=== PATIENT | male | born 1970 | race Caucasian/White ===

== ENCOUNTER 2024-05-18 02:55 | Outpatient (CLI) | payer BC, SELFPAY ==
[2024-05-18 11:49] LABS: Abs Immature Grans 0.04 10^3/uL (0.0-0.06); Absolute Basophil Count 0.06 10^3/uL (0.0-0.2); Absolute Eosinophil Count 0.05 10^3/uL (0.0-0.7); Absolute Monocyte Count 0.63 10^3/uL (0.1-0.8); Absolute Neutrophil Count 7.24 10^3/uL (1.2-6.7); Basophils % 0.6 %; Eosinophils % 0.5 %; HCT 45.6 % (40.0-50.0); HGB 15.9 g/dL (13.5-17.5); Immature Grans % 0.4 %; Lymphocytes % 20.8 %; MCH 31.8 pg (27.0-33.0); MCHC 34.9 % (32.0-36.0); MCV 91 fL (80-95); MPV 9.5 fL (8.0-11.0); Monocytes % 6.2 %; Neutrophils % 71.5 %; Platelet Count 276 10^3/uL (130-400); RDW 13.5 % (11.8-14.1); WBC 10.12 10^3/uL (4.4-10.8)
[2024-05-18 12:01] LABS: Hemoglobin A1C 5.6 % (<5.7)
[2024-05-18 13:12] LABS: ALT 24 U/L (16-63); AST 19 U/L (15-37); Albumin 3.9 g/dL (3.4-5.0); Alkaline Phosphatase 101 U/L (46-116); Anion Gap 9.3 mmol/L (3-11); BUN 7 mg/dL (7-18); Bilirubin, Total 0.31 mg/dL (0.2-1.0); CO2 26.7 mmol/L (21.0-32.0); CREATININE 1.1 mg/dL (0.70-1.30); Calcium 9.1 mg/dL (8.5-10.1); Calculated LDL 81 mg/dL (<100); Chloride 103 mmol/L (98-107); Cholesterol 167 mg/dL (<200); Estimated GFR 79.28 (mL/min/1.73m2); Glucose 115 mg/dL (74-106); HDL Cholesterol 75 mg/dL (40-60); Potassium 4.3 mmol/L (3.5-5.1); Sodium 139 mmol/L (136-145); Total Protein 7.6 g/dL (6.4-8.2); Triglyceride 57 mg/dL (<150)
== END 2024-05-18 02:56 | disposition home or self-care (01) ==
LOC: LBO 02:55
PROVIDERS: PCP Nurse Practitioner Family; Visit Provider Nurse Practitioner Family
DX: I10 Essential (primary) hypertension (principal); Z00.00 Encounter for general adult medical examination without abnormal findings
CPT/HCPCS: 36415; 80053; 80061; 83036; 84443; 85025

== ENCOUNTER 2024-10-21 09:17 | Outpatient (REF) | payer BC, SELFPAY ==
--- NOTE | 2024-10-21 09:45 | SKI_PTH ---
PATIENT: Zion Trujillo LOC: [facility] U#:[id number] AGE/SX: 54/M ROOM: RE10/21/[address]: Amanda Calderon : 1970 BED: DIS: 10/21/2024 SPEC #: [id number] RECD: 10/21/24 12:49 STATUS: GORDON REQ #: [id number] STEPHANIA: 10/21/24 09:[address]: Amanda Calderon DEPT: Surgical Specimen RECD BY: Laly Johns ENTERED: 10/21/24 12:50 SP TYPE: LEYDI MCCABE DR: Page Valle, FEEDER/FOLDER Tissues: 1 - SKIN BIOPSY(SHAVE/PUNCH) Procedures: SKIN LEVEL 4 Comments: [id number]
== END 2024-10-21 09:18 | disposition home or self-care (01) ==
LOC: LBN 09:17
PROVIDERS: PCP Nurse Practitioner Family; Visit Provider Surgery
DX: L72.0 Epidermal cyst (principal); L82.1 Other seborrheic keratosis
CPT/HCPCS: 88305